=== PATIENT | female | born 1990 | race Caucasian/White ===

== ENCOUNTER → 2020-05-31 12:07 | Outpatient (CLI) | payer OTHER, SELFPAY ==
[2020-05-31 13:30] LABS: Hematocrit 29.7 % (36-46)
[2020-05-31 13:45] LABS: GTT (PREG) 1 Hour PP 50gm Dose 91 mg/dL (76-139)
== END ==
PROVIDERS: Referring Provider Obstetrics & Gynecology; Visit Provider Obstetrics & Gynecology
DX: Z34.83 Encounter for supervision of other normal pregnancy, third trimester (principal)
CPT/HCPCS: 36415; 82950; 85014; 85018

== ENCOUNTER 2020-07-19 07:51 | Outpatient (CLI) | payer OTHER, SELFPAY | END 2020-07-19 08:25 | disposition home or self-care (01) | LOC: LABOR 08:07 → OB 07-22 10:35 | PROVIDERS: Referring Provider Obstetrics & Gynecology; Visit Provider Obstetrics & Gynecology | DX: O47.03 False labor before 37 completed weeks of gestation, third trimester (principal); Z3A.39 39 weeks gestation of pregnancy | CPT/HCPCS: 59025; G0378; G0379 ==

== ENCOUNTER 2020-07-22 08:41 | Outpatient (CLI) | payer OTHER, SELFPAY ==
--- NOTE | 2020-07-22 12:39 | PM.OBTRLD ---
Visit Information Visit Information Date of evaluation: 07/22/20 Primary OB Provider: Val Singh On-call OB Provider: Mary Bartholomew Reason for Evaluation: Yes rule out labor Vital Signs Vital Signs: Blood pressure 124/72, pulse of 89, temperature 36.1? FOR[facility]LY [facility], [facility] Medical History (Updated 07/22/20 @ 12:41 by Mary Bartholomew MD) Constipation COVID-19 affecting in second trimester (~03/10/20) GERD (gastroesophageal reflux disease) (~2009) Hidradenitis suppurativa (~2008) Kidney stone (~2015) Migraines (~2015) Pyelonephritis affecting (~2015) UTI (urinary tract infection) during (~2015) Surgical History (Updated 05/28/20 @ 08:38 by Justine Zamora RN) H/O right breast biopsy (~01/2020) [place] teeth extracted (~2013) Family History (Updated 05/28/20 @ 08:45 by Justine Zamora RN) Mother Ovarian cyst Uterine benign neoplasm Father No problems noted. Grandmother No problems noted. Grandfather Dementia Grandmother No problems noted. Grandfather No problems noted. 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.) special beryl needs: No seatbelt use: always do you feel safe at home: Yes Smoking Status: Never smoker second hand exposure: No alcohol intake: never substance use type: does not use during the past year weight has: increased > 10 lbs well-balanced diet: daily or most days daily servings fruits/ve-4 caffeine: No Type(s) of exercise: bicycling, 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 She began having contractions again this morning and comes in for evaluation. No leakage of fluid although some increased discharge. Good movement. Patient has a headache but no scotomata or epigastric pain. ROS: Yes All systems reviewed with the patient and are negative except as otherwise documented Evaluation Evaluation Baseline heart rate: 140 Variability: Moderate (11-25) monitor accelerations: Present Monitor Decelerations: Absent Contraction Frequency (minutes): 2 Uterine Contraction Intensity: Mild Category of Tracing: Reactive Status: Category l Cervical dilation (cm): 1 Cervical effacement (%): 50 station: -4 Non-invasive Membranes Rupture Test: negative Diagnosis, Plan/Disposition Final Diagnosis (1) False labor: Status: Acute (2) 39 weeks gestation of : Status: Acute Plan/Disposition Plan: Patient was sent walking for 1 hour but did not return. OB Disposition: home
== END 2020-07-22 09:15 | disposition home or self-care (01) ==
LOC: LABOR 09:07 → OB 07-23 09:30
PROVIDERS: Referring Provider Specialist; Visit Provider Specialist
DX: O47.1 False labor at or after 37 completed weeks of gestation (principal); Z3A.39 39 weeks gestation of pregnancy
CPT/HCPCS: 59025; G0378; G0379

== ENCOUNTER → 2020-07-23 11:01 | Outpatient (CLI) | payer OTHER, SELFPAY ==
--- NOTE | 2020-07-23 11:02 | DI.US.S_ITS ---
PROCEDURE: US OB LIMITED INDICATIONS: Post-dates fluid check OUTSIDE/PRIOR DATING DATA: Late transfer of care, no available prior data. TECHNIQUE: Real-time scanning was performed of the fetus, with image documentation. Endovaginal scanning: Not needed COMPARISON: None. FINDINGS: A single living intrauterine gestation is present. Presentation: Vertex. Placenta: Placental position is posterior, without previa. Amniotic fluid index: 17.9 cm, normal range is 5-24 cm. heart rate: 150 beats per minute. Estimated gestational age from initial scan: Not available . IMPRESSION: Limited study at the clinician request to assess for amniotic fluid index which is normal at 17.9 cm. heart rate 150 beats per minute. Dictated by: Edmundo Antoine M.D. on 07/23/2020 at 11:55 Approved by: Edmundo Antoine M.D. on 07/23/2020 at 11:57
== END ==
PROVIDERS: Referring Provider Obstetrics & Gynecology; Visit Provider Obstetrics & Gynecology
DX: O48.0 Post-term pregnancy (principal); Z3A.40 40 weeks gestation of pregnancy
CPT/HCPCS: 76815

== ENCOUNTER 2020-07-23 15:59 | Inpatient (IN) | payer OTHER, SELFPAY ==
[2020-07-23 18:12] VITALS: BP 121/71
[2020-07-23 18:36] LABS: COVID19 - ADMIT (NP swab/PCR) Negative (Negative)
[2020-07-23] MEDS: LACTATED RINGERS 1,000 ML 100 ML IV (18:49)
[2020-07-23] MEDS: CLINDAMYCIN 900 MG/50 ML PIGGYBACK 50 MG IV (18:52)
[2020-07-23 18:53] LABS: Add Manual Diff / Slide Review NO; Basophils Absolute Auto 100 /uL (0-100); Basophils Percent Auto 0.6 % (0-2); Eosinophils Absolute Auto 0 /uL (0-450); Eosinophils Percent Auto 0.1 % (2-4); Hematocrit 29.8 % (36-46); Hemoglobin 9.6 g/dL (12.0-16.0); Lymphocytes Absolute Auto 1700 /uL (1100-4500); Lymphocytes Percent Auto 13.3 % (25-40); Mean Corpuscular HGB Conc 32.2 % (30-36); Mean Corpuscular Hemoglobin 26.4 PG (26-34); Mean Corpuscular Volume 81.9 fL (80-100); Monocytes Absolute Auto 700 /uL (0-900); Monocytes Percent Auto 5.2 % (3-14); Neutrophils Absolute Auto 10100 /uL (1500-7000); Neutrophils Percent Auto 80.8 % (50-75); Platelet Count 268 X10^3/uL (150-400); Red Blood Cell Count 3.63 X10^6/uL (4.0-5.2); Red Cell Distribution Width 14.2 % (11.6-14.8); White Blood Cell Count 12.5 X10^3/uL (4.5-11.0)
--- NOTE | 2020-07-23 19:47 | P.HPOB_ITS ---
OB HPI Date/Time Date of admission: 07/23/20 Date Patient Seen: 07/23/20 Time Patient Seen: 17:30 History of Present Condition Chief complaint: : 2 Para: 1 Estimated Date of Delivery: 07/23/20 Estimated Gestational Age (weeks): 40 Narrative: Reny Llanes is a 30 year old female admitted with premature rupture membranes at 40 weeks History of Present care: good care, initiated at week # (9), number of visits (11) and po unds weight gain (35) Dating criteria: LMP confirmed by 1st trimester US Ultrasounds: normal mid trimester US Obstetrical complications: none Medical complications: none Preadmission Labs Blood type: O (+) positive -: Antibody screen: negative, GBS status: positive, HBsAG: negative, HIV: negative and RPR/VDLR: negative -: Chlamydia screen: not detected and Gonorrhea screen: not detected -: Rubella: immune and Varicella: unknown HCAB: negative Integrated screen: Normal Fasting blood glucose: 91 Narrative: Patient was told there was an increased risk of fragile X syndrome, 50%, in this child. She declined amniocentesis. Prior (ies) History: 07/12/2015 male infant 39 weeks 7 lb 15 oz Evaluation Evaluation Baseline heart rate: 140 Variability: Moderate (11-25) monitor accelerations: Present Monitor Decelerations: Absent Contraction Frequency (minutes): 10 Uterine Contraction Intensity: Mild Category of Tracing: Reactive Status: Category l Cervical dilation (cm): 1 Cervical effacement (%): 50 station: -4 Laboratory results: Laboratory Tests 07/23/20 07/23/20 16:45 18:15 WBC 12.5 H RBC 3.63 L Hgb 9.6 L Hct 29.8 L MCV 81.9 MCH 26.4 MCHC 32.2 RDW 14.2 Plt Count 268 Neut % (Auto) 80.8 H Lymph % (Auto) 13.3 L [place] % (Auto) 5.2 Eos % (Auto) 0.1 L Baso % (Auto) 0.6 Neut # (Auto) 96084 H Lymph # (Auto) 1700 [place] # (Auto) 700 Eos # (Auto) 0 Baso # (Auto) 100 SARS-CoV-2 (PCR) Negative Comments: Grossly ruptured clear fluid [facility] Medical History (Updated 07/22/20 @ 12:41 by Mary Bartholomew MD) Constipation COVID-19 affecting in second trimester (~03/10/20) GERD (gastroesophageal reflux disease) (~2009) Hidradenitis suppurativa (~2008) Kidney stone (~2015) Migraines (~2015) Pyelonephritis affecting (~2015) UTI (urinary tract infection) during (~2015) Surgical History (Updated 05/28/20 @ 08:38 by Justine Zamora RN) H/O right breast biopsy (~01/2020) [place] teeth extracted (~2013) Family History (Updated 05/28/20 @ 08:45 by Justine Zamora RN) Mother Ovarian cyst Uterine benign neoplasm Father No problems noted. Grandmother No problems noted. Grandfather Dementia Grandmother No problems noted. Grandfather No problems noted. 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.) special beryl needs: No seatbelt use: always do you feel safe at home: Yes Smoking Status: Never smoker second hand exposure: No alcohol intake: never substance use type: does not use during the past year weight has: increased > 10 lbs well-balanced diet: daily or most days daily servings fruits/ve-4 caffeine: No Type(s) of exercise: bicycling, regular exercise (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 Good movement. Spontaneous rupture membranes clear fluid at 3:00 p.m. on 07/23/2020 no active contractions. No fevers. ROS: Yes All systems reviewed with the patient and are negative except as ot herwise documented Exam Vital Signs (past 8 hours): Blood pressure 124/74, pulse of 89, temperature 36.1?- 07/23/20 18:12 Blood Pressure 121/71 Narrative Exam Narrative: HEENT exam within normal limits. Lungs are clear to auscult ation percussion. Heart is regular rate and rhythm no S3-S4 murmurs. Abdomen is gravid. Nontender. Fetus is vertex. Extremities without edema and nontender. Objective Labs Result Diagrams: 07/23/20 18:15 Labs: Laboratory Results - last 24 hr 07/23/20 07/23/20 16:45 18:15 WBC 12.5 H RBC 3.63 L Hgb 9.6 L Hct 29.8 L MCV 81.9 MCH 26.4 MCHC 32.2 RDW 14.2 Plt Count 268 Neut % (Auto) 80.8 H Lymph % (Auto) 13.3 L [place] % (Auto) 5.2 Eos % (Auto) 0.1 L Baso % (Auto) 0.6 Neut # (Auto) 83021 H Lymph # (Auto) 1700 [place] # (Auto) 700 Eos # (Auto) 0 Baso # (Auto) 100 SARS-CoV-2 (PCR) Negative Assessment and Plan Assessment and Plan Assessment and Plan narrative: 40 week gestation with spontaneous rupture membranes not in active labor. Patient with positive group B strep culture. Penicillin allergy. Patient will be started on IV clindamycin and IV Pitocin. Anticipate vaginal delivery.
[2020-07-23] MEDS: OXYTOCIN PREMIX 30 UNIT/500 ML PLAST..BAG IV (19:54)
[2020-07-24] MEDS: CLINDAMYCIN 900 MG/50 ML PIGGYBACK 50 MG IV (04:43)
--- NOTE | 2020-07-24 06:35 | P.PCNOB_ITS ---
Labor & Delivery Delivery date: 07/24/20 Intrapartal Events: None Delivery augmentation: pitocin Delivery monitor: external FHT and external uterine Route of delivery: L&D Laceration Description: Perineal - 1st Degree Delivery repair: chromic (3 0) Estimated blood loss (mL): 200 Anesthesia Type: Epidural Narrative: Patient arrived on Labor and delivery with spontaneous rupture membranes. She did not started active labor so Pitocin was begun. She received IV clindamycin for positive group B strep culture and penicillin allergy. heart tones category 1 to category 2 throughout labor. Patient had a spontaneous vaginal delivery. There was a nuchal cord that was released and the compound presentation with the arm. The viable male infant was placed on the maternal abdomen. After the cord stopped pulsating the cord was clamped, cut, and cord bloods obtained. The placenta delivered spontaneously, intact, with 3 vessels. There were no cervical or vaginal tears. A first-degree perineal tear was repaired with 3 0 chromic suture. There is also a first- degree labial tear that did not require suturing. Both infant mother doing well. [place] Baby 1: gender: Male Presentation: vertex Position: Right Occiput Anterior Placenta delivery description: Spontaneous Cord Vessel Description: 3 Vessels, Nuchal Cord and Reduced score (1 min): 9 score (5 min): 9 Plan for aftercare: Routine care
[2020-07-24] MEDS: IBUPROFEN 600 MG TABLET PO ×3 (09:13→21:29)
[2020-07-24] MEDS: ACETAMINOPHEN 325 MG TABLET 650 MG PO (12:40)
[2020-07-24 15:39] VITALS: TEMP 36.8
[2020-07-24] MEDS: LANOLIN OINT 7 GM 1 APPLIC TOP (23:35)
[2020-07-25] MEDS: IBUPROFEN 600 MG TABLET PO ×2 (03:36→11:15)
[2020-07-25 05:52] LABS: Add Manual Diff / Slide Review NO; Basophils Absolute Auto 100 /uL (0-100); Basophils Percent Auto 0.5 % (0-2); Eosinophils Absolute Auto 100 /uL (0-450); Eosinophils Percent Auto 0.7 % (2-4); Hematocrit 31.5 % (36-46); Hemoglobin 10.2 g/dL (12.0-16.0); Lymphocytes Absolute Auto 2800 /uL (1100-4500); Lymphocytes Percent Auto 18.1 % (25-40); Mean Corpuscular HGB Conc 32.3 % (30-36); Mean Corpuscular Hemoglobin 26.6 PG (26-34); Mean Corpuscular Volume 82.2 fL (80-100); Monocytes Absolute Auto 800 /uL (0-900); Monocytes Percent Auto 5.1 % (3-14); Neutrophils Absolute Auto 11800 /uL (1500-7000); Neutrophils Percent Auto 75.6 % (50-75); Platelet Count 303 X10^3/uL (150-400); Red Blood Cell Count 3.83 X10^6/uL (4.0-5.2); Red Cell Distribution Width 14.5 % (11.6-14.8); White Blood Cell Count 15.6 X10^3/uL (4.5-11.0)
--- NOTE | 2020-07-25 07:35 | PM.OBDS.1 ---
Discharge Providers Provider Date of admission: 07/23/20 15:59 Discharge Date: 07/25/20 Primary care physician: Doctor Reyna MD Consults: 07/23/20 17:04 Consult to Anesthesiology Urgent Comment: Consulting Provider: Anesthesiologist Reason for consultation: Epidural Has provider been notified: No 07/25/20 06:30 Consult to Welding Foreman Routine Comment: Discharge provider: Mary Bartholomew MD Summary Hospital Course Date Patient Seen: 07/25/20 Time Patient Seen: 07:54 Diagnoses: 40 week gestation admitted with premature rupture membranes who had Pitocin induction, epidural catheter, with spontaneous vaginal delivery and repair of first-degree perineal tear Hospital Course: Patient arrived on Labor and delivery with rupture membranes. She did not go and active labor so Pitocin was begun. She received an epidural catheter for pain control. She had a spontaneous vaginal delivery with repair of first-degree perineal tear. Patient is doing well. Breast-feeding is going well. She is ambulatory in urinating well. Peripartum Data Delivery Method: Natural Vaginal Laceration Description: Perineal - 1st Degree Procedures: Pitocin induction, epidural catheter, spontaneous vaginal delivery, repair of first-degree vaginal tear complications: none 1: Gender: Male Disposition of : home Discharge Diagnosis (1) Vaginal delivery: Status: Acute Status at Discharge Cognitive/behavioral status at discharge: oriented Functional status at discharge: independent ambulation Overall status at discharge: patient is progressing back to baseline Time Spent with Patient Time attestation: Total time spent providing and/or coordinating discharge services: Time spent: Less than 30 minutes Objective Labs Result Diagrams: 07/25/20 05:38 Labs: Laboratory Results - last 24 hr 07/25/20 05:38 WBC 15.6 H RBC 3.83 L Hgb 10.2 L Hct 31.5 L MCV 82.2 MCH 26.6 MCHC 32.3 RDW 14.5 Plt Count 303 Neut % (Auto) 75.6 H Lymph % (Auto) 18.1 L [place] % (Auto) 5.1 Eos % (Auto) 0.7 L Baso % (Auto) 0.5 Neut # (Auto) 12527 H Lymph # (Auto) 2800 [place] # (Auto) 800 Eos # (Auto) 100 Baso # (Auto) 100 Exam Vital Signs (past 8 hours): Blood pressure 108/66, pulse 77, temperature 97.3? Narrative Exam Narrative: Abdomen is soft, nontender. Uterus is firm, at U, nontender. Mild lochia. Repair is intact. Extremities without edema and nontender. Patient is O positive, she is rubella immune, she received Tdap in the 3rd trimester. Discharge Plan Discharge Plan Patient Disposition: Home Discharge orders & Medications Prescriptions: New ibuprofen 600 mg Tablet 600 mg PO Q6HR PRN (Reason: Pain, Mild (1-3)) Qty: 20 RF: 0 Continued prenat.vits,janki,sma-hjzb-gtswt Tablet 1 tab PO DAILY Qty: 90 RF: 3 Follow up/Referrals: Val Singh MD [Physician] - 6 Weeks Mary Bartholomew MD [Physician] - Doctor Orellana MD [Primary Care Provider] - Diet/Activity/Treatments Diet: Regular Activity: Nothing in vagina for 6 weeks Skin/Wound/Dressing Care Report to your healthcare provider any signs of infection, such as:: chills, fever and increased pain Discharge Data Primary Care Provider: Doctor Reyna Attending Provider: Mary Bartholomew
[2020-07-25] MEDS: DOCUSATE 100 MG CAPSULE PO (11:15)
[2020-07-25] MEDS: FERROUS SULFATE 325 MG TABLET PO (11:15)
[2020-07-25 11:25] VITALS: BP 130/75; PULSE 88; RESP 16; TEMP 36.2
[2020-07-25] MEDS: ACETAMINOPHEN 325 MG TABLET 650 MG PO (12:47)
[2020-07-25] MEDS: LANOLIN OINT 7 GM 1 APPLIC TOP (12:47)
[2020-07-25] MEDS: HYDROCODONE/ACET 5/325 TABLET 1 TAB PO (13:16)
== END 2020-07-25 13:49 | disposition home or self-care (01) | DRG 807 ==
PROVIDERS: Admitting Provider Specialist; Referring Provider Specialist; Visit Provider Specialist
DX: O42.02 Full-term premature rupture of membranes, onset of labor within 24 hours of rupture (principal); Z37.0 Single live birth; Z3A.40 40 weeks gestation of pregnancy; O99.824 Streptococcus B carrier state complicating childbirth; Z86.16 Personal history of COVID-19; O48.0 Post-term pregnancy; Z20.822 Contact with and (suspected) exposure to COVID-19
CPT/HCPCS: 36415; 59050; 59400; 59410; 76815; 85025; 86850; 86900; 86901; 87635; C9803; G0378; G0379; J2590

== ENCOUNTER → 2022-02-04 14:05 | Outpatient (CLI) | payer OTHER, SELFPAY ==
[2022-02-04 15:20] LABS: Influenza A - CEPHEID Flu A POSITIVE (NEGATIVE); Influenza B - CEPHEID Flu B NEGATIVE (NEGATIVE); Respiratory Syncytial Virus Negative (Negative)
[2022-02-04 15:21] LABS: COVID-19 CEPHEID 4-PLEX PCR Negative (Negative)
== END ==
PROVIDERS: Visit Provider Physician Assistant
DX: R52 Pain, unspecified (principal)
CPT/HCPCS: 0241U

== ENCOUNTER → 2024-01-15 11:56 | Outpatient (CLI) | payer OTHER, SELFPAY ==
--- NOTE | 2024-01-15 11:58 | DI.US.S_ITS ---
LIMITED ULTRASOUND OF RIGHT BREAST AND AXILLA: 01/15/2024 CLINICAL: Palpable right breast lump. Comparison is made to exam dated: 01/15/2024 mammogram - [facility]. Color flow and real-time ultrasound of the right breast 9 o'clock, and axilla regions were performed. Rashid scale images of the real-time examination were reviewed. There is a 1.8 cm x 1.8 cm x 1 cm oval mass with a circumscribed margin in the right breast at 9 o'clock middle depth 6 cm from the nipple. This oval mass is hypoechoic. This correlates with mammography findings and the previous biopsy. Color flow imaging demonstrates that there is an adjacent vascularity. No significant abnormalities were seen sonographically in the right axilla. 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 Biopsy clip at this site seen on mammogram. Recommend correlation with prior biopsy pathology and prior imaging for confirmation and to assess if any change. If clinical correlation can not be preformed, targeted ultrasound could be preformed to demonstrate continued stability. No enlarged right axillary lymph nodes. Exam findings were conveyed to the patient. Patient is advised to monitor for significant change. This exam was interpreted at Station ID: [id number]. Electronically Signed By: Haja Joyner M.D. [facility] [place]/:01/16/2024 15:25:28 letter sent: Comparison Films Needed ACR BI-RADS Category 2: Benign
--- NOTE | 2024-01-15 11:58 | DI.MG.S_ITS ---
BILATERAL DIGITAL DIAGNOSTIC MAMMOGRAM 3D/2D: 01/15/2024 CLINICAL: Baseline exam. Right breast mass. No prior exams were available for comparison. The breasts are heterogeneously dense, which may obscure small masses (category c / 51-75% glandular tissue). There is a 2 cm oval mass with a circumscribed margin in the right breast at 9 o'clock middle depth. This correlates to the area of reported pain and with the biopsy. No other significant masses, calcifications, or other findings are seen in either breast. IMPRESSION: INCOMPLETE: NEED ADDITIONAL IMAGING EVALUATION Palpable mass in the right breast corresponds with prior biopsy site. A targeted ultrasound is recommended and will immediately follow. Based on the Tyrer Cuzick model (a risk assessment model) the patient's lifetime risk is 11.5% and her 10 year risk is 0.7%. According to the ACR, ACS, and NCCN guidelines, an annual breast MRI exam along with mammogram is recommended if the patient's lifetime risk is 20% or greater. This exam was interpreted at Station ID: [id number]. NOTE: For mammograms, a report in lay terms will be sent to the patient. Approximately 15% of breast malignancies will not be visualized mammographically. In the management of a palpable breast mass, a negative mammogram must not discourage biopsy of a clinically suspicious lesion. Electronically Signed By: Haja Joyner M.D. [facility] [place]/:01/15/2024 12:53:24 letter sent: Additional Imaging Needed ACR BI-RADS Category 0: Incomplete: Need Additional Imaging Evaluation
== END ==
LOC: MAMMO 11:57
PROVIDERS: PCP Internal Medicine; Referring Provider Obstetrics & Gynecology; Visit Provider Obstetrics & Gynecology
DX: R92.8 Other abnormal and inconclusive findings on diagnostic imaging of breast (principal); N63.15 Unspecified lump in the right breast, overlapping quadrants; R92.333 Mammographic heterogeneous density, bilateral breasts
CPT/HCPCS: 76642; 77066; G0279